=== PATIENT | male | born 1985 | race Caucasian/White ===

== ENCOUNTER → 2021-09-05 | Day surgery (SDC) | payer BC ==
[~2021-09-05] MED LIST: ACETAMINOPHEN 1000 MG/100 ML IV ONE; BACTRIM DS TAB1 EACH PO; BUPIVACAINE 0.25% 30ML SDV ONE; BUPIVACAINE HCL 0.25% 10ML MPF VIAL INJ ONE; CIPRO500 MG PO; DEXAMETHASONE SOD PHOS INJ 4 MG/ML SDV ONE; FLUCONAZOLE100 MG PO; KETOROLAC TROMETHAMINE 30 MG/ML VIAL ONE; LIDOCAINE 1% W/EPINEPHRINE 20 ML VIAL ONE; LIDOCAINE HCL 2% LOCAL INJ 5 ML SDV VIAL INJ ONE; ONDANSETRON HCL INJ 2MG/ML 2ML 2 MG/ML VIAL ONE; POVIDONE IODINE 0.05% 0.05 % ML PO ONE; PROPOFOL IV EMULSION 10 MG/ML 20 ML VIAL ONE; SEVOFLURANE INHAL SOLN 250 ML PEN BTL ONE; SODIUM CHLORIDE 0.9% 50ML 100 ML ONE
[2021-09-05 09:30] VITALS: BP 117/75
== END | disposition home or self-care (01) ==
LOC: OR 05:28
PROVIDERS: ATTEND Orthopaedic Surgery
DX: S83.232A Complex tear of medial meniscus, current injury, left knee, initial encounter (principal); S83.282A Other tear of lateral meniscus, current injury, left knee, initial encounter; M67.52 Plica syndrome, left knee; M22.42 Chondromalacia patellae, left knee; X58.XXXA Exposure to other specified factors, initial encounter; Z01.812 Encounter for preprocedural laboratory examination; Z20.822 Contact with and (suspected) exposure to COVID-19
CPT/HCPCS: 29882; C1713 ×3; J0690; U0002 ×2; J1100; J1885; J2001; J2405